=== PATIENT | female | born 1980 | race Caucasian/White ===

== ENCOUNTER 2016-10-24 15:01 | Outpatient (CLI) | payer MEDICAID, OTHER ==
[2016-10-24 19:06] LABS: BASOPHILS % (AUTO) 0.3 %; EOSINOPHILS # (AUTO) 0.1 10^3/uL (0.0-0.7); HCT - HEMATOCRIT 37.2 % (37.0-47.0); HGB - HEMOGLOBIN 12.3 g/dL (12.0-16.0); LYMPHOCYTES # (AUTO) 2.7 10^3/uL (1.5-3.5); LYMPHOCYTES % (AUTO) 23.2 %; MEAN CORPUSCULAR HEMOGLOBIN 30.9 pg (27.0-31.0); MEAN CORPUSCULAR HGB CONC 33.2 g/dL (32.0-36.0); MEAN CORPUSCULAR VOLUME 93.1 fL (81.0-99.0); MEAN PLATELET VOLUME 8.6 fL (7.9-10.8); MONOCYTES # (AUTO) 0.5 10^3/uL (0.0-1.0); MONOCYTES % (AUTO) 4.3 %; NEUTROPHILS # (AUTO) 8.3 10^3/uL (1.5-6.6); NEUTROPHILS % (AUTO) 71.2 %; RED BLOOD COUNT 3.99 10^6/uL (4.20-5.40); RED CELL DISTRIBUTION WIDTH 12.1 % (12.0-15.0); UNCORRECTED WHITE BLOOD COUNT 11.6 x10^3/uL; WHITE BLOOD COUNT 11.6 x10^3/uL (4.8-10.8)
[2016-10-24 19:09] LABS: BILIRUBIN,URINE NEGATIVE (NEGATIVE)
[2016-10-24 19:24] LABS: WBC,URINE 0-3 /HPF (0-5)
== END 2016-10-24 15:02 | disposition home or self-care (01) ==
LOC: LAB.F 15:01
PROVIDERS: ATTEND Nurse Practitioner Obstetrics & Gynecology
DX: Z36 Encounter for antenatal screening of mother (principal)
CPT/HCPCS: 36415; 81001; 85025; 86762; 86780; 86850; 86900; 86901; 87340; 87389

== ENCOUNTER 2017-03-23 16:11 | Outpatient (CLI) | payer MEDICAID ==
[2017-03-23 17:33] VITALS: BP 153/78
[2017-03-23 18:37] LABS: BILIRUBIN,URINE NEGATIVE (NEGATIVE); GLUCOSE, URINE (UA) NEGATIVE (NEGATIVE); KETONES,URINE (UA) 15 mg/dL (NEGATIVE); LEUKOCYTE ESTERASE, URINE NEGATIVE (NEGATIVE); NITRITE,URINE NEGATIVE (NEGATIVE); OCCULT BLOOD,URINE NEGATIVE (NEGATIVE); PH,URINE 6.5 PH (5.0-7.5); PROTEIN,URINE NEGATIVE (NEGATIVE); UROBILINOGEN,URINE 0.2 (NORMAL) E.U./dL (NORMAL)
[2017-03-23 18:39] LABS: CLARITY,URINE CLEAR (CLEAR)
== END 2017-03-23 19:10 | disposition home or self-care (01) ==
LOC: WFO 16:11 → FBP 16:33 → WFO 19:10
PROVIDERS: ATTEND Nurse Practitioner Obstetrics & Gynecology
DX: O30.043 Twin pregnancy, dichorionic/diamniotic, third trimester (principal); Z3A.32 32 weeks gestation of pregnancy
CPT/HCPCS: 59025; 81001; 81003; 84156; 87086

== ENCOUNTER 2017-03-29 07:47 | Outpatient (CLI) | payer MEDICAID ==
[2017-03-29 08:21] VITALS: BP 129/75
== END 2017-03-29 09:00 | disposition home or self-care (01) ==
LOC: WFO 07:47 → FBP 07:51 → WFO 09:00
PROVIDERS: ATTEND Obstetrics & Gynecology
DX: O30.003 Twin pregnancy, unspecified number of placenta and unspecified number of amniotic sacs, third trimester (principal); Z3A.33 33 weeks gestation of pregnancy
CPT/HCPCS: 59025

== ENCOUNTER 2017-04-05 08:01 | Outpatient (CLI) | payer MEDICAID ==
[2017-04-05 08:30] VITALS: BP 132/79
== END 2017-04-05 09:04 | disposition home or self-care (01) ==
LOC: WFO 08:01 → FBP 08:05 → WFO 09:04
PROVIDERS: ATTEND Obstetrics & Gynecology
DX: O30.043 Twin pregnancy, dichorionic/diamniotic, third trimester (principal); Z3A.34 34 weeks gestation of pregnancy
CPT/HCPCS: 59025

== ENCOUNTER 2017-04-12 07:58 | Outpatient (CLI) | payer MEDICAID ==
[2017-04-12 08:33] VITALS: BP 127/80
== END 2017-04-12 08:55 | disposition home or self-care (01) ==
LOC: WFO 07:58 → FBP 08:02 → WFO 08:55
PROVIDERS: ATTEND Obstetrics & Gynecology
DX: O30.043 Twin pregnancy, dichorionic/diamniotic, third trimester (principal); Z3A.35 35 weeks gestation of pregnancy
CPT/HCPCS: 59025

== ENCOUNTER 2017-04-18 01:31 | Inpatient (IN) | payer MEDICAID ==
[2017-04-18] MEDS ORDERED: SODIUM CHLORIDE FLUSH 0.9% 10 ML SYRINGE IVP PRN (01:55)
[2017-04-18] MEDS ORDERED: fentaNYL 100 MCG/2 ML VIAL IVP PRN (01:55)
[2017-04-18] MEDS ORDERED: OXYTOCIN/SODIUM CHLORIDE 250 ML IV ONE ×2 (01:55→14:29)
[2017-04-18] MEDS ORDERED: TERBUTALINE 1 MG/ML VIAL SUBQ PRN (01:55)
[2017-04-18] MEDS ORDERED: PENICILLIN G POTASSIUM 5,000,000 UNIT in SODIUM CHLORIDE 0.9% MINIBAG 100 ML IV ONE (01:55)
[2017-04-18] MEDS ORDERED: ONDANSETRON 4 MG/2 ML VIAL IVP PRN ×2 (01:55→04:43)
[2017-04-18] MEDS: LACTATED RINGERS 1,000 ML IV SCH ×2 (02:20→04:42)
--- NOTE | 2017-04-18 02:33 | PROVIDER PROGRESS NOTE ---
Labor Progress Note - Uterine Monitoring Uterine Monitoring Mode: positive: External toco Contraction Frequency (min/apart): Q3-4 Contraction Intensity: positive: Mild to moderate Uterine Resting Tone: positive: Soft - Monitoring Monitor Mode: positive: External ultrasound Heart Rate Variability: positive: Moderate (6-25 bmp) Accelerations: positive: Present, 15x15 Decelerations: positive: None Strip Review: positive: Category I - Vaginal Exam Dilation (in cm): (RN could not palpate) Station: -3 - Labor Progress Note Labor Progress Note/Additional Text: 36 yo with a 36w2d Di-Di Twin gestation PPROM VTX/transverse Twin A in 81%centile for weight, Twin B in 55%centile GBS unknown Rubella nonimmune Desires permanent sterilization if a Delivery is required Admit CBC with type and hold Continuous monitoring Expectant management for now. Consider ampicillin at 12 hours SROM Betamethasone 12 mg IV x 1 and repeat in 24 hours if still gravid PCN now until results of rapid GBS completed Delivery in the OR with a double set-up, but anticipate vaginal delivery for both babies Peds present for delivery Prepare for hemorrhage Bilateral salpingectomy in the event a Delivery is indicated MMR H&P Dictated: [id number]
[2017-04-18] MEDS ORDERED: BETAMETHASONE 30 MG/5 ML VIAL IM SCH (03:00)
[2017-04-18 03:18] LABS: BASOPHILS # (AUTO) 0.1 10^3/uL (0.0-0.1); BASOPHILS % (AUTO) 0.7 %; EOSINOPHILS # (AUTO) 0.1 10^3/uL (0.0-0.7); EOSINOPHILS % (AUTO) 1.1 %; HGB - HEMOGLOBIN 12.7 g/dL (12.0-16.0); LYMPHOCYTES # (AUTO) 2.8 10^3/uL (1.5-3.5); LYMPHOCYTES % (AUTO) 23.2 %; MEAN CORPUSCULAR HEMOGLOBIN 29.9 pg (27.0-31.0); MEAN CORPUSCULAR HGB CONC 32.9 g/dL (32.0-36.0); MEAN CORPUSCULAR VOLUME 90.8 fL (81.0-99.0); MONOCYTES # (AUTO) 0.7 10^3/uL (0.0-1.0); MONOCYTES % (AUTO) 6.1 %; NEUTROPHILS # (AUTO) 8.3 10^3/uL (1.5-6.6); NEUTROPHILS % (AUTO) 68.9 %; PLT - PLATELET COUNT 360 10^3/uL (130-450); RED BLOOD COUNT 4.26 10^6/uL (4.20-5.40)
[2017-04-18] MEDS ORDERED: fent/BUPIV 2 MCG/0.125% 250 ML EP ONE (03:33)
[2017-04-18] MEDS ORDERED: NALBUPHINE 20 MG/ML AMP IVP PRN (04:43)
[2017-04-18] MEDS ORDERED: fent/BUPIV 2 MCG/0.125% 250 ML EP PRN (04:43)
[2017-04-18] MEDS ORDERED: ePHEDrine 50 MG/ML VIAL IVP PRN (04:43)
[2017-04-18] MEDS ORDERED: NALOXONE 0.4 MG/ML VIAL IVP PRN (04:43)
[2017-04-18] MEDS ORDERED: METOCLOPRAMIDE 10 MG/2 ML VIAL IVP PRN (04:43)
[2017-04-18] MEDS ORDERED: LACTATED RINGERS 500 ML IV ONE (04:43)
[2017-04-18] MEDS ORDERED: diphenhydrAMINE INJ 50 MG/ML VIAL IVP PRN (04:43)
--- NOTE | 2017-04-18 04:59 | HISTORY & PHYSICAL EXAMINATION ---
DATE OF ADMISSION: 04/18/2017 IDENTIFICATION: A 36-year-old, G6, P1-0-4-1 with a 36 and 2/7 week intrauterine . EDC is 05/14/2017, established by 10-week ultrasound. HISTORY OF PRESENT ILLNESS: The patient is a patient of [facility] with a known diamniotic dichorionic twin gestation. The patient has been seeing us routinely since 10 weeks' gestation. At her first OB appointment, it was discovered that she had a di/di twin gestation. So far, the patient's has only been remarkable for mildly elevated blood pressures with the most significant blood pressure of 144/70 at 28 weeks' gestation. The patient has, in addition, been to a maternal medicine specialist at [facility]. Her most recent visit on 04/16/2017 showed that the babies were vertex transverse. Twin A was in the 81st percentile and vertex. Deepest vertical pocket was 3.8 cm and a BPP of 8/8 for twin B. He is measuring in the 55th percentile with the deepest vertical pocket of 6.4 cm and a BPP of 8/8. He is transverse. Discordance at that time was 8.7 percentile, but appropriate interval growth and normal amniotic fluid volumes for both twins. The patient has been getting weekly nonstress tests, which have been category 1 and reactive. The patient presents to Labor and Delivery with complaints of loss of fluid of about 1:00 or 1:30 this morning. On examination, she was grossly ruptured. She is shruthi every 3-4 minutes. tracing is reassuring. We will check her cervix in the near future. There is no abnormal vaginal bleeding, and again she is shruthi every 3-4 minutes. PAST MEDICAL HISTORY: None. She denies any hypertension, diabetes, or thyroid disorder. PAST SURGICAL HISTORY: None. ALLERGIES: NO KNOWN DRUG ALLERGIES. MEDICATIONS 1. vitamins. 2. Aspirin 81 mg. SOCIAL HISTORY: Quit tobacco during this . She denies any illicit drug use or alcohol use. Her significant other is Yoseph and these are twin boys. She is thinking about naming the babies Rodo and Oren. 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 The patient has stated that if she needed a delivery, she would like permanent sterilization. Consent forms had been signed on 01/22/2017. Her pharmacy of choice is [facility] in [place], [place]. She would like to breastfeed the babies. Her older son is Christiano, who is about 10 years old. PAST OBSTETRICAL HISTORY 1. Term vaginal delivery on 05/12/2007, at 41 weeks gestation of a male fetus named Christiano, weighing 8 pounds 6 ounces, 15 hours of labor. 2. Four therapeutic abortions. PAST GYNECOLOGIC HISTORY: The patient has a history of abnormal Pap smears. Her most recent Pap smear on 10/18/2016 was negative, as well as a screening for the high risk human papillomavirus. Her abnormal Pap smears are as follows : 10/13/2013 ASCUS, with a negative high-risk HPV; 10/24/2011, ASCUS Pap smear ; 03/08/2010 Pap smear, ASCUS with a positive high risk HPV; 06/19/2009 Pap smear, ASCUS; 04/15/2010, colposcopy with ectocervical biopsies negative x2; and a 08/09/2009 colposcopy with ectocervical biopsies negative x2. She denies any sexually transmitted diseases. FAMILY HISTORY: No female carcinoma. REVIEW OF SYSTEMS: Negative unless otherwise stated. She denies any nausea, vomiting, fevers,chills, diarrhea, constipation. The babies are moving well. SUBJECTIVE VITAL SIGNS: Temperature is 98.4, heart rate 109, blood pressure 148/92 and 142 /83, O2 saturation is 100 percent on room air, respiratory rate 16. GENERAL: The patient is a well-developed, well-nourished, female, in no apparent distress. She is alert and oriented x3. HEENT: Normal. CARDIOVASCULAR: Regular. No murmurs, rubs. PULMONARY: Lungs are clear to auscultation bilaterally. ABDOMEN: Gravid, nontender. Most recent fundal height is 40 cm at 34 weeks gestation. LABORATORY DATA: labs reveal a negative Pap smear, negative gonorrhea and chlamydia. Blood type is B positive, antibody screen is negative. HIV negative. RPR nonreactive. Rubella nonimmune. Hepatitis B surface antigen is negative. One hour GTT is 124. ASSESSMENT 1. A 36-year-old G6, P1-0-4-1 with a 36 and 2/7 week diamniotic dichorionic twin gestation. 2. Spontaneous rupture of membranes. 3. Rubella nonimmune. PLAN 1. We will admit to Labor and Delivery. 2. Cervical exam. 3. Rapid GBS done, but we will start penicillin in the meantime. 4. Betamethasone 12 mg IM x1 now and in 24 hours if she is still in order to prevent prematurity issues. 5. Anticipate delivery in the operating room as a double setup, in the event that a delivery is indicated. 6. We will have medications on hand and will be prepared for hemorrhage, given a distended uterus. 7. We will proceed to permanent sterilization, should the patient require a delivery. 8. MMR vaccination . 9. We will call Pediatrics in for delivery. TD: 04/18/2017 05:58 CASSIDY
[2017-04-18] MEDS: PENICILLIN G POTASSIUM 2,500,000 UNIT in SODIUM CHLORIDE 0.9% 100ML 100 ML IV SCH ×2 (06:26→10:25)
[2017-04-18] MEDS: ACETAMINOPHEN 325 MG TABLET PO SCH ×2 (06:34→21:33)
[2017-04-18] MEDS: SODIUM CHLORIDE FLUSH 0.9% 10 ML SYRINGE IVP SCH ×3 (06:35→19:40)
--- NOTE | 2017-04-18 09:15 | PROVIDER PROGRESS NOTE ---
Labor Progress Note - Uterine Monitoring Uterine Monitoring Mode: positive: External toco Contraction Frequency (min/apart): Q2-4 Contraction Intensity: positive: Mild Uterine Resting Tone: positive: Soft - Monitoring Monitor Mode: positive: External ultrasound Heart Rate Variability: positive: Moderate (6-25 bmp) Accelerations: positive: Present, 15x15 (For both twins) Decelerations: positive: None (For both twins) Strip Review: positive: Category I (For both twins) - Vaginal Exam Dilation (in cm): 4 (Per RN exam at 05:19) Effacement (%): 75 Station: 0 - Labor Progress Note Labor Progress Note/Additional Text: 36 yo with a 36w2d IUP PPROM VTX/transverse Rubella nonimmune GBS pending. Second dose of PCN due 10:30. Reassuring and maternal status. Epidural in place and working well. Established at about 03:00. Will start pitocin augmentation. Continue PCN for GBS; awaiting rapid GBS results. OR informed of the patient's plan to deliver in the OR. Will have a double set up available if Delivery necessary. Plan for bilateral salpingectomy in that event. Will have U/S machine in the OR to evaluate fetuses. Will have cytotec 200 mcg x 4 available to prevent hemorrhage. MMR . Will alert Dr. Katelyn Patton, the salesperson men's furnishings radio performer of the patient's situation. Continue pitocin. Ranitidine 150 mg BID for GERD. Labs, EKG, Meds, Allergy - Lab Results Fish Bones: 04/18/17 02:20 Other Lab Results: Lab Results x24hrs 04/18/17 Range/Units 02:20 WBC 12.0 H (4.8-10.8) x10^3/uL RBC 4.26 (4.20-5.40) 10^6/uL Hgb 12.7 (12.0-16.0) g/dL Hct 38.7 (37.0-47.0) % MCV 90.8 (81.0-99.0) fL MCH 29.9 (27.0-31.0) pg MCHC 32.9 (32.0-36.0) g/dL RDW 13.0 (12.0-15.0) % Plt Count 360 (130-450) 10^3/uL MPV 9.0 (7.9-10.8) fL Neut # 8.3 H (1.5-6.6) 10^3/uL Lymph # 2.8 (1.5-3.5) 10^3/uL Lipscomb # 0.7 (0.0-1.0) 10^3/uL Eos # 0.1 (0.0-0.7) 10^3/uL Baso # 0.1 (0.0-0.1) 10^3/uL Absolute Nucleated RBC 0.01 x10^3/uL Nucleated RBC % 0.1 /100WBC - Medications Medications: Ambulatory Orders Medication Instructions Recorded Confirmed No Known Home Medications [No 08/25/15 08/25/15 Known Home Medications] - Allergy Allergy: Allergies Allergy/AdvReac Type Severity Reaction Status Date / Time No Known Drug Allergies Allergy Verified 09/29/13 16:25 No Known Home Medications [No Known Home Medications] 08/25/15
[2017-04-18] MEDS ORDERED: OXYTOCIN/SODIUM CHLORIDE 250 ML IV SCH (10:00)
--- NOTE | 2017-04-18 11:01 | PROVIDER PROGRESS NOTE ---
Labor Progress Note - Uterine Monitoring Uterine Monitoring Mode: positive: External toco Contraction Frequency (min/apart): Q3-4 Contraction Intensity: positive: Moderate to strong Uterine Resting Tone: positive: Soft - Monitoring Monitor Mode: positive: External ultrasound Heart Rate Variability: positive: Moderate (6-25 bmp) Accelerations: positive: Present, 15x15 Decelerations: positive: None - Vaginal Exam Dilation (in cm): 9 Effacement (%): 100 Station: -1 Cervical Position: Posterior - Labor Progress Note Labor Progress Note/Additional Text: 36 yo with a 36w2d IUP, Di-Di twin gestation PPROM Anticipate x 2 soon. Prepare for delivery in the OR Continue PCN, epidural, pitocin Message left at Dr. Patton's office of the patient's progress.
[2017-04-18] MEDS ORDERED: MEASLES,MUMPS & RUBELLA VACC 0.5 ML VIAL SUBQ ONE (14:29)
[2017-04-18] MEDS ORDERED: MAGNESIUM HYDROXIDE 2,400 MG/30 ML UDC PO PRN (14:29)
[2017-04-18] MEDS ORDERED: HYDROCORTISONE 1% CREAM 28 GM TUBE PR PRN (14:29)
[2017-04-18] MEDS ORDERED: WITCH HAZEL/GLYCERIN 1 EACH MED..PAD TOP PRN (14:29)
--- NOTE | 2017-04-18 14:50 | DELIVERY NOTE ---
Delivery Note - Labor Labor: positive: Augmented by oxytocin - Delivery Method Delivery Method: positive: Spontaneous vaginal delivery (For both babies) - Presentation Presentation: positive: Vertex (For both babies), OA - occiput anterior - Nuchal Cord Nuchal Cord: positive: None - Anesthetic Anesthetic Type: - Amniotic Fluid Description Amniotic Fluid Description: positive: Clear - Episiotomy Type Episiotomy Type: positive: None - Laceration Laceration: positive: 2nd degree, Perineal - Suture Suture Type: positive: Vicryl Suture Size: positive: 3-0 - Delivery Outcome Delivery Outcome: positive: Livebirth (For both babies) - [place] sex: positive: Male : 7 : 9 - Cord Cord: positive: 3 vessels - Placenta Placenta: positive: Intact, Spontaneous - Estimated Blood Loss Estimated Blood Loss (in cc): 300 - Post Delivery Events Post Delivery Events: positive: No post delivery events - Delivery Comments (Free Text/Narrative) Delivery Comments (Free Text/Narrative): Delivery Note Date of Delivery: 04/18/2017 Management And Budget Analyst: Marita Desir DO FACOG Makeup Artistry Instructor: Manda Martinez CRNA Anesthesia: Epidural Pre-delivery Dx: 1. 36 yo with a 36w2d Di-Di twin gestation 2. VTX/transverse presentation 3. Active labor 4. PPROM Post-delivery Dx: 1. 36 yo S/p 2. Stable condition Procedure: Findings: Viable male twins. Apgars 7/9 twin A, 8/9 twin B. 3VC. Specimens: 1. Cord blood x 2 2. Placenta Drains: None EBL: 300 mL Complications: None Dictation: [id number]
[2017-04-18] MEDS: HYDROcod/ACETAM 5/325 MG TABLET PO PRN ×2 (15:12→19:02)
--- NOTE | 2017-04-18 15:46 | PROCEDURE REPORT ---
DATE OF DELIVERY: 04/18/2017. RETAIL KEY HOLDER: Marita Desir DO, FACOG. POWDER WORKER: Manda Martinez CRNA during delivery. Katelyn Prado CRNA to establish epidural. ANESTHESIA: Epidural PREDELIVERY DIAGNOSES: 1. A 36-year-old G6, P1-0-4-1 with 36 and 2/7 week diamniotic dichorionic twin gestation. 2. Vertex transverse presentation. 3. Active labor. 4. Premature rupture of membranes. POSTDELIVERY DIAGNOSES: 1. A 36-year-old G6, P2-0-2-3, status post spontaneous vaginal delivery for both twins. 2. Stable condition. PROCEDURE: Spontaneous vaginal delivery. FINDINGS: Viable male infants both in vertex presentation. For twin A Apgars of 7 and 9 in 1 and 5 minutes respectively, for twin B 8 and 9 at 1 and 5 minutes respectively. Three-vessel umbilical cord. Placenta delivered spontaneously, intact. SPECIMENS REMOVED: 1. Cord blood x2. 2. Placenta. DRAINS: None. ESTIMATED BLOOD LOSS: 300 mL COMPLICATIONS: None. HISTORY OF PRESENT ILLNESS: This is a patient at [facility] with whom we have been seeing since 10 weeks gestation. At 10 weeks' gestation , Park was diagnosed with a diamniotic dichorionic intrauterine . Park had an unsure LMP so ultrasound was established by that study with EDC of 05/14/2017. Park has been getting routine visits with us. She has also been getting ultrasounds for growth at the [facility] at [facility] on a monthly basis. She has also been getting nonstress test weekly as of a 32 weeks' gestation. At Park's most recent ultrasound, in the Maternal Medicine, the babies were noted to be in vertex and transverse presentation. Twin A was in the 80th percentile and twin B was in the 55th percentile. Amniotic fluid volumes for both twins were within normal limits. Park presented to the [facility] earlier this morning with complaints of loss of fluid, at about 1 or 1:30 this AM. Grossly ruptured. A GBS rapid was obtained and sent off. Park was given penicillin until the GBS results returned. Park was also given one dose of betamethasone 12 mg IM x1 given that the was premature, and a twin gestation. Park did receive an epidural for pain control. Park did progress to 4 cm dilation. She was then augmented with Pitocin. After Park got to completely dilated, completely effaced and -1 station, she was taken to the operating room for delivery. A double setup was available in case Park required a delivery for Twin A or for both babies. For delivery, the nurse billet straightener, as well as Pediatrics were present for delivery. Park's Guthrie catheter was removed and then she spontaneously delivered. Apgars were 7 and 9 at 1 and 5 minutes respectively. Nose and mouth were suctioned upon delivery. The baby was handed off to Dr. John Moreno who was able to attend the delivery. Tracing was continued for twin B and twin B was found to be now in vertex presentation. Pitocin was continued until the baby descended into the pelvis. Artificial rupture of membranes was then performed. Clear fluid was noted. Twin B delivered spontaneously and the nose and mouth were suctioned with a bulb syringe. Cord was doubly clamped and cut and the infant was then handed off to Dr. Katelyn Patton, the other auto parts counter person who was available for delivery. Umbilical cord blood was obtained for both babies and sent off. The placenta delivered spontaneously intact with 3-vessel cord. A single umbilical clamp was placed on twin A's umbilical cord. No markers were placed on twin B's umbilical cord. Inspection of the placenta revealed that it was intact with all the cotyledons visualized. Placenta will be sent to pathology for further evaluation. The vulva, vagina and cervix were then inspected. Park did sustain a superficial right first degree laceration of the medial labia majora. She had a more significant second degree midline laceration that was repaired with 3-0 Vicryl. EBL was minimal at 300 mL Prophylactically, Park was given 800 mcg of Cytotec per rectum for prevention of a hemorrhage. She was also started immediately on a bag of LR with 30 units of oxytocin. Park tolerated the delivery well and taken back to the recovery room in stable and awake condition. We will go ahead and continue Park on routine care. She will receive MMR as she is equivocal for her rubella. She also will receive around the clock, Celebrex and p.r.n. Tylenol and Vicodin. TD: 04/18/2017 16:45 [facility]Thom
[2017-04-18] MEDS: CELECOXIB 100 MG CAPSULE PO SCH (16:26)
[2017-04-18] MEDS: HYDROCORTISONE/PRAMOXINE 10 GM PR PRN ×2 (16:45→21:36)
[2017-04-18] MEDS ORDERED: CELECOXIB 100 MG CAPSULE PO SCH (21:00)
[2017-04-18] MEDS: DOCUSATE SODIUM 100 MG CAPSULE PO SCH (21:34)
[2017-04-18] MEDS ORDERED: SIMETHICONE CHEW 80 MG TABLET PO SCH (22:00)
[2017-04-19] MEDS: HYDROcod/ACETAM 5/325 MG TABLET PO PRN (00:43)
[2017-04-19] MEDS ORDERED: ROPIVACAINE 0.2% PF 10 ML VIAL EPI ONE (03:40)
[2017-04-19] MEDS: CELECOXIB 100 MG CAPSULE PO SCH ×2 (04:34→20:46)
[2017-04-19] MEDS: ACETAMINOPHEN 325 MG TABLET PO SCH (06:13)
--- NOTE | 2017-04-19 08:05 | PROVIDER PROGRESS NOTE ---
Subjective - Prog Note Date Prog Note Date: 04/19/17 Prog Note Time: 08:03 - Subjective Subjective: Patient in bed, doing SNS with OB RN with baby A, "Oren," 6 lb 5.9 oz. Bleeding is improving. Noting significant cramping. Twin B is "Leo," 5 lb 8 oz. Objective - Vital Signs/Intake & Output Vital Signs: Vital Signs x48h Temp Pulse Resp BP Pulse Ox 04/19/17 04:35 98.8 F 103 H 20 130/24 L 98 Intake & Output: Intake & Output 04/16/17 04/17/17 04/18/17 04/19/17 23:59 23:59 23:59 23:59 Intake Total 3350 500 Output Total 2150 Balance 1200 500 - Objective General Appearance: positive: No acute distress Eyes Bilateral: positive: Normal inspection Abdomen: positive: Non-tender Skin: positive: Color nml Neurologic/Psychiatric: positive: Oriented x3 - Lab Results Fish Bones: 04/18/17 02:20 Assessment/Plan - Problem List (1) Twin delivered vaginally Impression: 36 yo S/p of a Di-Di twin gestation. Normal recovery. Patient not controlled. Will increase tylenol to 1000 mg Q 8 HR and change vicodin to oxycodone. Abdominal binder PRN.
[2017-04-19] MEDS: DOCUSATE SODIUM 100 MG CAPSULE PO SCH ×2 (08:42→20:47)
[2017-04-19] MEDS: oxyCODONE 5 MG TABLET PO PRN ×3 (08:42→20:47)
[2017-04-19] MEDS: ACETAMINOPHEN 500 MG TABLET PO SCH ×2 (14:12→22:00)
--- NOTE | 2017-04-19 17:42 | PROVIDER PROGRESS NOTE ---
Subjective - Prog Note Date Prog Note Date: 04/19/17 Prog Note Time: 17:39 - Subjective Pt reports feeling: Improved Subjective: Patient feeling "100%" better than earlier today. Vicodin changed to tylenol and oxycodone. Twin A (Oren) is latching well and no longer needs glucose checks. Leo, however, will need at least one more. Objective - Vital Signs/Intake & Output Reviewed Vital Signs: Yes Intake & Output: Intake & Output 04/16/17 04/17/17 04/18/17 04/19/17 23:59 23:59 23:59 23:59 Intake Total 3350 500 Output Total 2150 Balance 1200 500 - Objective General Appearance: positive: No acute distress Eyes Bilateral: positive: Normal inspection Abdomen: positive: Non-tender Skin: positive: Color nml Neurologic/Psychiatric: positive: Oriented x3 - Lab Results Fish Bones: 04/18/17 02:20 Assessment/Plan - Problem List (1) Twin delivered vaginally Impression: 36 yo S/p of a Di-Di twin gestation, PPD #1 Normal recovery Pain controlled Routine care Discharge to home tomorrow Will change Rx from vicodin to oxycodone for home care. Discharge summary: [id number]
--- NOTE | 2017-04-19 22:03 | DISCHARGE SUMMARY ---
DATE OF ADMISSION: 04/18/2017. DATE OF DISCHARGE: 04/20/2017. DIAGNOSIS ON ADMISSION: 1. A 36-year-old G6, P1-0-4-1 with a 36 and 2/7 week diamniotic dichorionic twin gestation. 2. premature rupture of membranes. DIAGNOSIS ON DISCHARGE: 1. A 36-year-old Rafi, P1-1-4-3 status post spontaneous vaginal delivery on 04/18. 2. Normal recovery. BRIEF HISTORY OF PRESENT ILLNESS: Park is a patient of [facility] with whom we have been seeing since 10 weeks' gestation. At that initial ultrasound, it was found that Park had a diamniotic dichorionic twin gestation. Park has been getting routine care with us. This has been only remarkable for mildly elevated blood pressures , but otherwise it has been going well. Park has also been seen by the maternal medicine specialist at [facility]. Her growth ultrasounds have been appropriate and the babies were noted to be vertex transverse at her most recent ultrasound. Park presented in the frame wirer of 04/18/2017, with complaints of loss of fluid. Park was found to be grossly ruptured. Park did eventually spontaneously go into labor and received an epidural for pain control. She then received Pitocin for augmentation of labor. Park spontaneously delivered 2 male infants on 04/18/2017. Baby A was a male with Apgars of 7 and 9 at one and five minutes, respectively. His name is Oren. Twin B delivered vertex and his Apgars were 8 and 9 at one and five minutes, respectively. His name is Leo. Park delivered her placenta spontaneously intact with a 3-vessel umbilical cord for both twins. The placenta was sent off for pathological review. Estimated blood loss was 300 mL. Park did receive 800 mcg of Cytotec per rectum after delivery for prophylaxis of a hemorrhage. Twin A weighed 6 pounds 5.9 ounces and twin B weighed 5 pounds 8 ounces. Park's course has been essentially unremarkable. She is ambulating and tolerating a regular diet, and urinating without difficulty. Her pain is controlled with routinely scheduled Celebrex as well as Tylenol. Park is doing much better on oxycodone as opposed to Vicodin. Park will be discharged to home on day #2. Prescriptions for Park's recovery at home have been faxed to [facility] in [place]. Therefore, 1. Ibuprofen. 2. Colace. 3. Tylenol. 4. Ranitidine. 5. A prescription for oxycodone will also be available for Park for discharge to home. Park is to see me, at [facility] in 6 weeks for a routine visit. She is to call should she have any worsening fever, chills, abdominal pain or vaginal bleeding. We will definitely discuss contraception with Park at her next visit. TD: 04/19/2017 23:03 CASSIDY
[2017-04-20] MEDS: oxyCODONE 5 MG TABLET PO PRN ×3 (02:10→13:59)
[2017-04-20] MEDS: ACETAMINOPHEN 500 MG TABLET PO SCH ×2 (06:20→13:58)
[2017-04-20 08:23] VITALS: BP 120/66
--- NOTE | 2017-04-20 08:44 | PROVIDER PROGRESS NOTE ---
Subjective - Prog Note Date Prog Note Date: 04/20/17 Prog Note Time: 08:42 - Subjective Pt reports feeling: Improved Subjective: Patient sitting in bed. Twins in the bassinet beside her. Ambulating, tolerating a regular diet. Urinating without difficulty. Pain well controlled. Babies doing better. Objective - Vital Signs/Intake & Output Vital Signs: Vital Signs x48h Temp Pulse Resp BP Pulse Ox 04/20/17 08:22 98.1 F 101 H 16 120/66 99 Intake & Output: Intake & Output 04/17/17 04/18/17 04/19/17 04/20/17 23:59 23:59 23:59 23:59 Intake Total 3350 500 Output Total 2150 Balance 1200 500 - Objective General Appearance: positive: No acute distress Eyes Bilateral: positive: Normal inspection Abdomen: positive: Non-tender Skin: positive: Color nml Extremities: positive: Non-tender Neurologic/Psychiatric: positive: Oriented x3 - Lab Results Fish Bones: 04/18/17 02:20 Assessment/Plan - Problem List (1) Twin delivered vaginally Impression: 36 yo S/p of 36w2d Di-Di twin gestation on 04/18/2017 Normal recovery Discharge to home or boarding pending on babies' disposition Follow up with me in 6 weeks Rx for home care ready Call for worsening fevers, chills, abdominal pain or vaginal bleeding Discharge Plan Disposition: 01 Home, Self Care Condition: Good Diet: Regular Activity Restrictions: Activity as Tolerated Shower Restrictions: No Driving Restrictions: Yes (Do not drive after taking oxycodone) Weight Bearing: Full Weight No Smoking: If you smoke, Please STOP! Call for help.
[2017-04-20] MEDS: DOCUSATE SODIUM 100 MG CAPSULE PO SCH (09:53)
[2017-04-20] MEDS: CELECOXIB 100 MG CAPSULE PO SCH (09:53)
[2017-04-20] MEDS ORDERED: MEASLES,MUMPS & RUBELLA VACC 0.5 ML VIAL SUBQ ONE (17:00)
--- NOTE | 2017-04-20 19:47 | Labor Flowsheet ---
Labor Flowsheet Datetime Report Generated by CPN: 04/20/2017 19:46 Datetime: 04/20/2017 08:14 VITAL SIGNS NBP Sys/Rosa/Mean (mmHg): 120 : 66 : 79 Pulse: 97 LaborFlag: Labor Datetime: 04/19/2017 19:35 SpO2 (%): 98 Datetime: 04/18/2017 14:06 Cervical Ripening Agents: Cytotec @ (Annotations: 800 mcg rectally.) Datetime: 04/18/2017 14:01 MEDICATIONS Pitocin (milliunits): Increased to @ (Annotations: Pitocin wide open per CNM Milagrosa.) Datetime: 04/18/2017 13:49 Membrane Status: Ruptured (Annotations: Baby B.) Membranes Ruptured Date/Time: 04/18/2017 13:49 Membranes Rupture Method: Artificial Amniotic Fluid Color: Clear Amniotic Fluid Amount: Large Amniotic Fluid Odor: Normal Datetime: 04/18/2017 12:28 Patient Care Comments: Pt to OR for delivery. Datetime: 04/18/2017 12:25 UTERINE ACTIVITY Monitor Mode: External Frequency (min): q3 Quality: Strong Duration (sec): 60-90 Pattern: Normal: <= 5 Contractions in 10 Minutes Resting Tone (Palpate): Relaxed ASSESSMENT A Monitor Mode: External US FHR Baseline Rate : 135 Variability: Moderate 6-25 bpm Accelerations: 15X15 Decelerations: None Category: Category I ASSESSMENT B Monitor Mode: External US FHR Baseline Rate : unable to determine during this time period. Variability: Moderate 6-25 bpm Decelerations: None Datetime: 04/18/2017 12:20 VAGINAL EXAM Dilatation (cm): 10.0 Effacement (%): 100 Station: 0 Exam by: Dr. Desir Datetime: 04/18/2017 12:15 Accelerations: 15X15 Category: Category I Datetime: 04/18/2017 11:59 Patient Position/Activity: Semi-Fowlers Datetime: 04/18/2017 11:30 Pitocin Checklist: At Least 1 Acceleration of 15 bpm x 15 Seconds in 30 Minutes or Adequate Variabi lity; No More than 1 Late Deceleration Occurred in Past 30 Minutes; No More than 2 Variable Decelerat ions > 60 Seconds in Duration and decreasing >60 bpm in 30 minutes; No More than 5 Uterine Contractio ns in 10 Minutes for any 20 Minute Interval; Uterus Palpates Soft between Contractions Anesthesia Level Check: T9 Datetime: 04/18/2017 11:00 Respirations: 16 Temperature (C): 36.7 Temperature Route: Oral Datetime: 04/18/2017 10:35 Monitor Interventions for UA: [place] Adjusted Datetime: 04/18/2017 09:47 Comments: Ultrasound adjusted Datetime: 04/18/2017 09:46 Monitor Interventions for FHR: Ultrasound Adjusted Datetime: 04/18/2017 08:56 Communication Comments: Dr. Desir discussing with pt about starting pitocin. Datetime: 04/18/2017 08:55 COMMUNICATION Communication: Provider at Bedside Datetime: 04/18/2017 06:36 TEACHING Instructional Method: Verbal Plan of Care: Plan of Care Discussed Medications: Antibiotics Datetime: 04/18/2017 06:30 PAIN Pain Scale: 0 Datetime: 04/18/2017 06:26 Antibiotics: Penicillin IV (Units) @ Datetime: 04/18/2017 05:30 Unit Routine: Unit Personnel Datetime: 04/18/2017 05:24 Antiemetics/Antacids: Zofran (mg) @ Datetime: 04/18/2017 05:02 FHR Baseline Changes: No Baseline Change FHR Baseline Changes: No Baseline Change Pain Presence: None/Denies Pain Type: N/A Pain Goal: 5 Pain Relief Measures: Epidural Given Pain Coping: Talking Through Contractions Datetime: 04/18/2017 04:46 I/O Interventions: Guthrie Cath Inserted Datetime: 04/18/2017 04:41 PATIENT CARE IV/Blood Work: New IV Bag Hung Datetime: 04/18/2017 04:40 Oxygen Method: Room Air Pain Management: Epidural Datetime: 04/18/2017 04:30 Comments: EFM adjusted after epidural A=blue tracing Datetime: 04/18/2017 04:05 Epidural Procedure: Loading Dose Datetime: 04/18/2017 03:55 Anesthesia Comments: local given Datetime: 04/18/2017 03:50 Pain Location: Other (Annotations: vaginal pressure) PROCEDURE TIME OUT Procedure Verify: Correct Patient Identity; Correct Side and Site are Marked; Accurate Procedure Co nsent Form; Agreement on Procedure to be Done; Correct Patient Position; Addressed Need to Administer Antibiotics or Fluids for Irrigation; Safety Precautions Based on Patient History or Medication Use Epidural Positioning: Sitting Datetime: 04/18/2017 03:40 Stage of : Labor ANESTHESIA Anesthesia Plans: Epidural Provider Notified (Name): MANAGER PRINT Aube Notification Reason: Status; Uterine Activity; Pain Datetime: 04/18/2017 03:02 Steroids: Celestone 12mg IM (Annotations: RVG) Datetime: 04/18/2017 02:31 MATERNAL ASSESSMENT Level of Consciousness: Fully Conscious Headache: Denies Breath Sounds, Left: Clear and Equal Breath Sounds, Right: Clear and Equal Nausea/Vomiting: Denies RUQ Epigastric Pain: Denies Datetime: 04/18/2017 02:30 Comfort Measures: Breathing/Relaxation; Coaching
== END 2017-04-20 19:00 | disposition home or self-care (01) | DRG 775 ==
LOC: WFO 01:31 → FBP 01:34 → WFO 01:53 → FBP 01:55
PROVIDERS: ADMIT Obstetrics & Gynecology; ATTEND Obstetrics & Gynecology
PROC: 10E0XZZ Delivery of Products of Conception, External Approach (ICD-10-PCS; principal; 2017-04-18)
PROC: 0KQM0ZZ Repair Perineum Muscle, Open Approach (ICD-10-PCS; 2017-04-18)
PROC: 10907ZC Drainage of Amniotic Fluid, Therapeutic from Products of Conception, Via Natural or Artificial Opening (ICD-10-PCS; 2017-04-18)
DX: O42.013 Preterm premature rupture of membranes, onset of labor within 24 hours of rupture, third trimester (principal); O30.043 Twin pregnancy, dichorionic/diamniotic, third trimester; O70.1 Second degree perineal laceration during delivery; O99.62 Diseases of the digestive system complicating childbirth; K21.9 Gastro-esophageal reflux disease without esophagitis; Z3A.36 36 weeks gestation of pregnancy; Z37.2 Twins, both liveborn; Z79.82 Long term (current) use of aspirin; Z87.891 Personal history of nicotine dependence; Z28.3 Underimmunization status
CPT/HCPCS: 85025; 87081; 87797; 88307; 99213

== ENCOUNTER 2017-09-03 06:10 | Day surgery (SDC) | payer MEDICAID ==
[2017-09-03] MEDS ORDERED: ceFAZolin 2 GM/50 ML 2 GM/50 ML BAG IV ONE (06:38)
[2017-09-03] MEDS ORDERED: LACTATED RINGERS 1,000 ML IV ONE (06:38)
[2017-09-03 06:48] LABS: HCG UR QUAL NEGATIVE
[2017-09-03] MEDS ORDERED: LIDOCAINE 1% 50 ML MDV ONE (07:39)
[2017-09-03] MEDS ORDERED: BUPIVACAINE 0.5%-EPI 1:200000 PF 30 ML VIAL ONE (07:39)
[2017-09-03] MEDS ORDERED: BUPIVACAINE 0.5%-EPI 1:200000 PF 30 ML VIAL SUBQ ONE (07:47)
[2017-09-03] MEDS ORDERED: LIDOCAINE 1% 50 ML MDV SUBQ ONE (07:47)
[2017-09-03] MEDS ORDERED: PROPOFOL 200 MG/20 ML VIAL IVP ONE (08:00)
[2017-09-03] MEDS ORDERED: LIDOCAINE-MPF 2% 5 ML VIAL IM ONE (08:00)
[2017-09-03] MEDS ORDERED: fentaNYL 100 MCG/2 ML VIAL IVP ONE (08:00)
[2017-09-03] MEDS ORDERED: KETOROLAC 30 MG/ML VIAL ONE (08:47)
[2017-09-03 09:07] VITALS: BP 101/59
--- NOTE | 2017-09-03 12:00 | OPERATIVE REPORT ---
DATE OF SERVICE: 09/03/2017 Physician: Marlon Ramsey MD PREOPERATIVE DIAGNOSIS: Symptomatic incarcerated ventral epigastric hernia. POSTOPERATIVE DIAGNOSIS: Symptomatic incarcerated ventral epigastric hernia. PROCEDURE PERFORMED: Open repair of symptomatic incarcerated ventral epigastric hernia. ANESTHESIA: Local plus monitored anesthesia care by Dr. Cid. SURGEON: Marlon Ramsey MD ESTIMATED BLOOD LOSS: Minimal. COMPLICATIONS: None. FINDINGS: A 1 cm transverse fascial defect was noted in the epigastrium approximately 3 cm cephalad to the umbilicus. An associated hernia sac was present containing primarily preperitoneal fat measuring approximately 4 cm in diameter. INDICATIONS: The patient is a 36-year-old woman with an increasingly painful and tender epigastric bulge that recently became irreducible. Examination revealed a tender, soft 3-4 cm mass in the midline of the epigastrium approximately 3 cm cephalad to the umbilicus consistent with a ventral epigastric hernia with incarceration. She was advised to undergo repair. TECHNIQUE: After informed consent, the patient was taken to the operating room where she was sedated and monitored. Preoperative preparation included administration of sequential calf compression boots and 2 grams of cefazolin intravenously within an hour of the incision. Her abdomen was prepared with iodoform solution following which a local block was instituted using a 50:50 combination of 0.5% Marcaine with epinephrine and 1% lidocaine plain, total of 20 mL was used. Her abdomen was then re-prepared with ChloraPrep solution and draped in the usual sterile fashion. A transverse incision was made overlying the palpable mass, approximately 4-5 cm in length. Hemostasis was achieved with electrocautery and 2-0 Vicryl ties. The incision was carried down to the subcutaneous tissues where the mass was identified, which was seen to represent a hernia sac. It was dissected free from surrounding subcutaneous tissues. The neck of the hernia sac was exposed circumferentially along with the surrounding midline fascia. The hernia sac was entered. The contents were seen to be preperitoneal fat. This fat was excised using 2-0 Vicryl sutures for hemostasis. The excised fat was discarded. After hemostasis was assured, the fascial edges were reapproximated with 2-0 Ethibond sutures. After hemostasis was again assured, the wound was irrigated with saline solution following which wound closure was accomplished in layers using continuous 3-0 Vicryl to reapproximate the deep as well as superficial subcutaneous tissues, followed by 4-0 Monocryl for subcuticular skin closure, followed by Dermabond. The procedure was then terminated, and the patient transferred out of the operating room in satisfactory condition. Sponge and needle counts were correct x2. No drains were used. TD: 09/03/2017 08:53
== END 2017-09-03 06:11 | disposition home or self-care (01) ==
LOC: SDS 06:10
PROVIDERS: ATTEND Internal Medicine Gastroenterology
PROC: 0WQF0ZZ Repair Abdominal Wall, Open Approach (ICD-10-PCS; principal; 2017-09-03 07:30)
DX: K46.0 Unspecified abdominal hernia with obstruction, without gangrene (principal); F17.200 Nicotine dependence, unspecified, uncomplicated; E66.9 Obesity, unspecified; Z68.30 Body mass index [BMI] 30.0-30.9, adult
CPT/HCPCS: 49566; 81025; J0690; J7120